=== PATIENT | female | born 1950 | race Caucasian/White ===

== ENCOUNTER → 2016-12-28 | Outpatient (CLI) | payer MEDICARE, OTHER ==
[~2016-12-28] MED LIST: FENTANYL PF 100 MCG/2ML ONE; FLUMAZENIL 0.1 MG/1 ML, 5ML ONE; MIDAZOLAM 1 MG/ML, 5ML ONE; NALOXONE 1 MG/ML, 2ML ONE
== END | disposition home or self-care (01) ==
LOC: RAD 11:35
PROVIDERS: ATTEND Neurological Surgery
DX: M51.26 Other intervertebral disc displacement, lumbar region (principal); M51.16 Intervertebral disc disorders with radiculopathy, lumbar region; M41.86 Other forms of scoliosis, lumbar region; M48.07 Spinal stenosis, lumbosacral region; M43.17 Spondylolisthesis, lumbosacral region; M47.896 Other spondylosis, lumbar region; M25.78 Osteophyte, vertebrae
CPT/HCPCS: 72110; 72148; 99156; 99157; J2250; J3010; J2310

== ENCOUNTER → 2017-04-25 | Outpatient (CLI) | payer MEDICARE, OTHER ==
[~2017-04-25] MED LIST changes: +AMIT50TA PO; +ASPI-496 PO; +CHOL5000 PO; -FENTANYL PF 100 MCG/2ML ONE; +FISH1CAP PO; -FLUMAZENIL 0.1 MG/1 ML, 5ML ONE; +GABA300C10 PO; -MIDAZOLAM 1 MG/ML, 5ML ONE; +MULT-257 PO; -NALOXONE 1 MG/ML, 2ML ONE; +VITA1CAP PO
[2017-04-25 11:52] LABS: HEMATOCRIT 43.5 % (34.6-47.8); HEMOGLOBIN 14.9 g/dL (11.7-16.4); WHITE BLOOD COUNT 7.7 x10^3/uL (3.4-10)
[2017-04-25 12:01] LABS: BLOOD UREA NITROGEN 16 mg/dL (7-18)
== END | disposition home or self-care (01) ==
LOC: STAR 10:48
PROVIDERS: ATTEND Neurological Surgery
DX: Z01.811 Encounter for preprocedural respiratory examination (principal); M54.16 Radiculopathy, lumbar region; I45.10 Unspecified right bundle-branch block; R79.1 Abnormal coagulation profile
CPT/HCPCS: 36415; 71020; 80048; 81003; 85025; 85610; 85730; 93005

== ENCOUNTER 2017-05-09 07:35 | Day surgery (SDC) | payer MEDICARE, OTHER ==
[~2017-05-09] VITALS: Ht 165.1 cm; Wt 79.0 kg
[2017-05-09] MEDS ORDERED: LACTATED RINGERS 1,000 ML IV SCH (07:51)
[2017-05-09 07:52] VITALS: BP 136/90
[2017-05-09] MEDS ORDERED: METOPROLOL 1 MG/ML, 5ML IV PRN (09:30)
[2017-05-09] MEDS ORDERED: ACETAMINOPHEN 325 MG TABLET PO PRN (09:30)
[2017-05-09] MEDS ORDERED: METOCLOPRAMIDE 5 MG/ML, 2ML IV PRN (09:30)
[2017-05-09] MEDS ORDERED: ONDANSETRON 2MG/ML, 2ML IVPush PRN ×2 (09:30→13:00)
[2017-05-09] MEDS ORDERED: EPHEDRINE 50 MG/ML, 1ML IVPush PRN (09:30)
[2017-05-09] MEDS ORDERED: hydrALAzine 20 MG/ML, 1ML IV PRN (09:30)
[2017-05-09] MEDS ORDERED: ALBUTEROL SULFATE 2.5 MG/3 ML NPPB PRN (09:30)
[2017-05-09] MEDS ORDERED: PROMETHAZINE 25 MG/ML, 1ML IV PRN (09:30)
[2017-05-09] MEDS ORDERED: OXYcodone 5 MG/5 ML ORAL.SOL UDC PO PRN (09:30)
[2017-05-09] MEDS ORDERED: LABETALOL 5MG/ML, 20ML IV PRN (09:30)
[2017-05-09] MEDS ORDERED: MEPERIDINE/PF 25MG/0.5ML IVPush PRN (09:30)
[2017-05-09] MEDS ORDERED: KETOROLAC 30 MG/1 ML IV PRN (09:30)
[2017-05-09] MEDS ORDERED: FENTANYL PF 100 MCG/2ML IV PRN (09:30)
[2017-05-09] MEDS ORDERED: MIDAZOLAM 1 MG/ML, 2ML ONE (10:26)
[2017-05-09] MEDS ORDERED: FENTANYL PF 100 MCG/2ML ONE ×2 (10:26)
[2017-05-09] MEDS ORDERED: SUCCINYLCHOLINE 20 MG/ML, 10ML ONE (11:25)
[2017-05-09] MEDS ORDERED: ONDANSETRON 2MG/ML, 2ML ONE (11:25)
[2017-05-09] MEDS ORDERED: ROCURONIUM 10 MG/ML ONE (11:25)
[2017-05-09] MEDS ORDERED: EPINEPHRINE 1 MG/ML, 1ML ONE (11:25)
[2017-05-09] MEDS ORDERED: CEFAZOLIN 1,000 MG ONE (11:25)
[2017-05-09] MEDS ORDERED: DEXAMETHASONE 4 MG/ML, 1ML ONE (11:25)
[2017-05-09] MEDS ORDERED: PROPOFOL 10 MG/ML, 20ML ONE (11:25)
[2017-05-09] MEDS ORDERED: BUPIVACAINE/PF 0.5% INFIL ONE (11:57)
[2017-05-09] MEDS ORDERED: EPINEPHRINE 1 MG/ML, 1ML INFIL ONE (11:59)
[2017-05-09] MEDS ORDERED: BACITRACIN 50,000 UNIT IRRIG ONE (12:01)
[2017-05-09] MEDS ORDERED: HYDROcodone/APAP 10/325 MG TABLET PO PRN (13:00)
[2017-05-09] MEDS ORDERED: HYDROmorphone 2 MG/ML, 1ML IVPush PRN (13:00)
[2017-05-09] MEDS ORDERED: TIZANIDINE 4MG TABLET PO PRN (13:00)
[2017-05-09] MEDS ORDERED: OXYcodone 5 MG/5 ML ORAL.SOL UDC ONE (13:11)
[2017-05-09] MEDS ORDERED: MEPERIDINE/PF 50 MG/ML ONE (13:11)
[2017-05-09] MEDS ORDERED: HYDROmorphone 1 MG/ML, 1ML ONE (13:16)
[2017-05-09] MEDS: HYDROmorphone 1 MG/ML, 1ML IV PRN ×2 (13:43→13:48)
[2017-05-09] MEDS ORDERED: THROMBIN 5,000 UNIT VIAL TP ONE (14:22)
== END 2017-05-09 16:45 | disposition home or self-care (01) ==
LOC: OUT 07:35
PROVIDERS: ATTEND Neurological Surgery
DX: M48.06 Spinal stenosis, lumbar region (principal); M54.16 Radiculopathy, lumbar region; M19.90 Unspecified osteoarthritis, unspecified site; F17.210 Nicotine dependence, cigarettes, uncomplicated; Z98.890 Other specified postprocedural states; Z90.710 Acquired absence of both cervix and uterus; Z88.1 Allergy status to other antibiotic agents; Z88.6 Allergy status to analgesic agent; Z91.048 Other nonmedicinal substance allergy status; Z79.01 Long term (current) use of anticoagulants; Z82.49 Family history of ischemic heart disease and other diseases of the circulatory system; Z83.3 Family history of diabetes mellitus
CPT/HCPCS: 63047; 63048; 72100; J0171; J0330; J0690; J1100; J1170; J2250; J2405; J2704; J3010; J3490; J7120

== ENCOUNTER → 2017-08-30 | Outpatient (CLI) | payer MEDICARE, OTHER ==
[~2017-08-30] MED LIST changes: +FENTANYL PF 100 MCG/2ML ONE; +MIDAZOLAM 1 MG/ML, 5ML ONE
== END ==
LOC: RAD 09:16
PROVIDERS: ATTEND Neurological Surgery
DX: M51.26 Other intervertebral disc displacement, lumbar region (principal); M48.07 Spinal stenosis, lumbosacral region; Z98.890 Other specified postprocedural states
CPT/HCPCS: 72148; J2250; J3010

== ENCOUNTER → 2017-10-06 | Outpatient (CLI) | payer MEDICARE, OTHER ==
[~2017-10-06] MED LIST changes: +MIDAZOLAM 1 MG/ML, 2ML ONE; -MIDAZOLAM 1 MG/ML, 5ML ONE
== END | disposition home or self-care (01) ==
LOC: RAD 08:43
PROVIDERS: ATTEND Registered Nurse Registered Nurse First Assistant
DX: M51.16 Intervertebral disc disorders with radiculopathy, lumbar region (principal)
CPT/HCPCS: 72148; J2250; J3010

== ENCOUNTER → 2017-11-01 | Outpatient (CLI) | payer MEDICARE, OTHER ==
[~2017-11-01] MED LIST changes: -MIDAZOLAM 1 MG/ML, 2ML ONE; +MIDAZOLAM 1 MG/ML, 5ML ONE
== END | disposition home or self-care (01) ==
LOC: RAD 08:56
PROVIDERS: ATTEND Nurse Practitioner Family
DX: M16.11 Unilateral primary osteoarthritis, right hip (principal); M70.61 Trochanteric bursitis, right hip
CPT/HCPCS: 73502; 73721; 99156; 99157; J2250; J3010

== ENCOUNTER → 2018-01-22 | Outpatient (CLI) | payer MEDICARE, OTHER ==
[~2018-01-22] MED LIST changes: +AMIT25TA PO; +DIAZ10TA4 PO; -FENTANYL PF 100 MCG/2ML ONE; +HYDR-879 PO; -MIDAZOLAM 1 MG/ML, 5ML ONE; +ROSU5TAB PO; +UBID100C24 PO; +VITA150T PO
[2018-01-22 11:23] LABS: MICROSCOPIC NOT IND
[2018-01-22 11:23] LABS: BASOPHILS # (AUTO) 0.05 x10^3/uL (0-0.1); BASOPHILS % (AUTO) 1 % (0-1); EOSINOPHILS # (AUTO) 0.22 x10^3/uL (0-0.4); EOSINOPHILS % (AUTO) 2 % (1-7); LYMPHOCYTES # (AUTO) 1.68 x10^3/uL (1-3.4); LYMPHOCYTES % (AUTO) 18 % (22-44); MD NO; MEAN CORPUSCULAR HEMOGLOBIN 34.4 pg (27.0-34.8); MEAN CORPUSCULAR HGB CONC 34.1 g/dL (32.4-35.8); MEAN CORPUSCULAR VOLUME 100.7 fL (80-100); MEAN PLATELET VOLUME 7.6 fL (7.4-10.4); MONOCYTES # (AUTO) 0.66 x10^3/uL (0.2-0.8); MONOCYTES % (AUTO) 7 % (2-9); NEUTROPHILS # (AUTO) 6.76 x10^3/uL (1.8-6.8); NEUTROPHILS % (AUTO) 72 % (42-75); PLATELET COUNT 293 x10^3/uL (130-400); RED BLOOD COUNT 4.23 x10^6/uL (3.82-5.3); RED CELL DISTRIBUTION WIDTH 14.1 % (9.6-15.2)
[2018-01-22 11:29] LABS: CULTURE INDICATED? NO
[2018-01-22 11:30] LABS: INTERNATIONAL NORMALIZED RATIO 0.92 (0.93-1.1); PROTHROMBIN TIME 9.5 Seconds (9.6-11.5)
[2018-01-22 11:33] LABS: ALANINE AMINOTRANSFERASE 47 U/L (12-78); ALBUMIN 3.6 g/dL (3.4-5.0); ANION GAP 6 mmol/L (5-15); CALCIUM 9.1 mg/dL (8.5-10.1); CHLORIDE 106 mmol/L (98-107); CREATININE 0.79 mg/dL (0.55-1.02)
[2018-01-22 11:35] LABS: ALKALINE PHOSPHATASE 102 U/L (45-117); BILIRUBIN,TOTAL 0.4 mg/dL (0.2-1.0); TOTAL PROTEIN 7.3 g/dL (6.4-8.2)
[2018-01-22 12:25] LABS: HEMOGLOBIN A1C 5.7 % (4.2-6.3)
== END | disposition home or self-care (01) ==
LOC: STAR 09:59
PROVIDERS: ATTEND Orthopaedic Surgery
DX: Z01.818 Encounter for other preprocedural examination (principal); M16.11 Unilateral primary osteoarthritis, right hip
CPT/HCPCS: 36415; 80053; 81003; 83036; 85025; 85610; 85730; 87081; 87147; 87806; 93005; G0475

== ENCOUNTER 2018-01-29 07:32 | Inpatient (IN) | payer MEDICARE, OTHER ==
[2018-01-22 11:00] VITALS: BP 132/83
[~2018-01-29] VITALS: Ht 165.1 cm; Wt 81.8 kg
[~2018-01-29 07:32] MED LIST changes: +EPINEPHRINE 1 MG/ML, 1ML ONE; +KETOROLAC 60 MG/2 ML ONE; +ROPIvacaine/PF 0.2%, 20 ML ONE; +SODIUM CHLORIDE 0.9% 100 ML ONE; +TRANEXAMIC ACID 100 MG/ML, 10ML ONE
[2018-01-29] MEDS ORDERED: LACTATED RINGERS 1,000 ML IV SCH (07:44)
[2018-01-29] MEDS ORDERED: ACETAMINOPHEN 500 MG TABLET PO ONE ×2 (08:00→10:00)
[2018-01-29] MEDS ORDERED: GABAPENTIN 300 MG CAPSULE PO ONE ×2 (08:00→10:00)
[2018-01-29] MEDS ORDERED: FENTANYL PF 250 MCG/5ML ONE (08:02)
[2018-01-29] MEDS ORDERED: MIDAZOLAM 1 MG/ML, 2ML ONE (08:02)
[2018-01-29] MEDS ORDERED: PROPOFOL 10 MG/ML, 20ML ONE (08:03)
[2018-01-29] MEDS ORDERED: LIDOCAINE-MPF 2% ,5ML ONE (08:03)
[2018-01-29] MEDS ORDERED: MUPI1OIN6 NAS (08:03)
[2018-01-29] MEDS ORDERED: ROCURONIUM 10MG/ML,5ML ONE (08:04)
[2018-01-29] MEDS ORDERED: CEFAZOLIN 1,000 MG ONE ×2 (08:04→08:05)
[2018-01-29] MEDS ORDERED: WATER-INJECTION,STERILE 10 ML IV ONE (08:05)
[2018-01-29] MEDS ORDERED: DEXAMETHASONE 4 MG/ML, 1ML ONE ×2 (08:06)
[2018-01-29] MEDS ORDERED: BUPIVACAINE/PF 0.25% ONE (08:07)
[2018-01-29] MEDS ORDERED: EPINEPHRINE 1 MG/ML, 1ML ONE (08:08)
[2018-01-29] MEDS ORDERED: OxyconTIN ER 20 MG TAB.ER ONE (09:20)
[2018-01-29] MEDS ORDERED: ONDANSETRON ODT 8 MG ONE (09:20)
[2018-01-29] MEDS ORDERED: ONDANSETRON 4 MG TABLET PO PRN (09:30)
[2018-01-29] MEDS ORDERED: ONDANSETRON 2MG/ML, 2ML IV PRN (09:30)
[2018-01-29] MEDS ORDERED: DIAZEPAM 5 MG TABLET PO PRN (09:30)
[2018-01-29] MEDS ORDERED: ALUMINUM/MAG/SIMETHICONE 30 ML UDC PO PRN (09:30)
[2018-01-29] MEDS ORDERED: ACETAMINOPHEN 650 MG/20.3 ML UDC PO PRN (09:30)
[2018-01-29] MEDS ORDERED: DIPHENHYDRAMINE 25 MG CAPSULE PO PRN (09:30)
[2018-01-29] MEDS ORDERED: MAGNESIUM HYDROXIDE 8%, 30ML UDC PO PRN (09:30)
[2018-01-29] MEDS ORDERED: HYDROmorphone 1 MG/ML, 1ML IV PRN (09:30)
[2018-01-29] MEDS ORDERED: SENNA/DOCUSATE TABLET PO PRN (09:30)
[2018-01-29] MEDS ORDERED: HALOPERIDOL 5 MG/ML IV PRN (10:00)
[2018-01-29] MEDS ORDERED: LORazepam 2 MG/ML, 1ML IVPush PRN (10:00)
[2018-01-29] MEDS ORDERED: MEPERIDINE/PF 25MG/0.5ML IVPush PRN (10:00)
[2018-01-29] MEDS ORDERED: PROMETHAZINE 25 MG/ML, 1ML IV PRN (10:00)
[2018-01-29] MEDS ORDERED: FENTANYL PF 100 MCG/2ML IV PRN (10:00)
[2018-01-29] MEDS ORDERED: OXYcodone 5 MG/5 ML ORAL.SOL UDC PO PRN (10:00)
[2018-01-29] MEDS ORDERED: hydrALAzine 20 MG/ML, 1ML IV PRN (10:00)
[2018-01-29] MEDS ORDERED: LABETALOL 5MG/ML, 20ML IV PRN (10:00)
[2018-01-29] MEDS ORDERED: FENTANYL PF 100 MCG/2ML ONE (10:08)
[2018-01-29] MEDS ORDERED: HYDROmorphone 2 MG/ML, 1ML ONE (11:03)
[2018-01-29] MEDS: HYDROmorphone 1 MG/ML, 1ML IV PRN ×4 (11:05→11:35)
[2018-01-29] MEDS ORDERED: TRANEXAMIC ACID 1,000 MG in SODIUM CHLORIDE 0.9% 100 ML IVPB ONE (11:30)
[2018-01-29] MEDS: D5%-0.45NACL+KCL 20MEQ 1,000 ML IV SCH ×2 (13:10→22:43)
[2018-01-29 13:20] VITALS: BP 116/82
[2018-01-29] MEDS: GABAPENTIN 300 MG CAPSULE PO SCH ×2 (16:05→22:44)
[2018-01-29] MEDS: OXYcodone IR 5MG TABLET PO PRN ×2 (16:05→22:52)
[2018-01-29] MEDS: CEFAZOLIN PMX 1GM/50ML 50 ML IVPB SCH (16:05)
[2018-01-29] MEDS: ASPIRIN 81 MG TABLET EC PO SCH (16:05)
[2018-01-29 18:35] VITALS: BP 97/66
[2018-01-29] MEDS ORDERED: DIAZEPAM 10 MG TABLET PO SCH (21:00)
[2018-01-29] MEDS ORDERED: AMITRIPTYLINE 50 MG TABLET PO SCH (21:00)
[2018-01-29] MEDS ORDERED: ATORVASTATIN 10 MG TABLET PO SCH (21:00)
[2018-01-29] MEDS: DOCUSATE 100 MG CAPSULE PO SCH (22:44)
[2018-01-30] MEDS: CEFAZOLIN PMX 1GM/50ML 50 ML IVPB SCH (00:14)
[2018-01-30 00:30] VITALS: BP 100/67
[2018-01-30 04:26] VITALS: BP 109/72
[2018-01-30] MEDS ORDERED: DEXAMETHASONE 4 MG/ML, 1ML IVPush SCH (06:00)
[2018-01-30] MEDS: ASPIRIN 81 MG TABLET EC PO SCH (06:11)
[2018-01-30] MEDS: D5%-0.45NACL+KCL 20MEQ 1,000 ML IV SCH (07:00)
[2018-01-30] MEDS: GABAPENTIN 300 MG CAPSULE PO SCH (08:41)
[2018-01-30] MEDS: OXYcodone IR 5MG TABLET PO PRN ×2 (08:42→13:28)
[2018-01-30] MEDS: DOCUSATE 100 MG CAPSULE PO SCH (08:42)
[2018-01-30] MEDS ORDERED: TAMSULOSIN 0.4 MG CAP.ER.24H PO SCH (09:00)
[2018-01-30 10:24] VITALS: BP 99/66
[2018-01-30] MEDS ORDERED: KETOROLAC 30 MG/1 ML IV SCH (11:00)
[2018-01-30 11:26] VITALS: BP 99/66
[2018-01-30 12:59] VITALS: BP 95/63
[2018-01-30] MEDS ORDERED: CELE200C PO (13:48)
[2018-01-30] MEDS ORDERED: ASPI-515 PO (13:48)
[2018-01-30] MEDS ORDERED: DOCU-131 PO (13:48)
[2018-01-30] MEDS ORDERED: OXYC5TAB3 PO (13:48)
[2018-01-30] MEDS ORDERED: ONDA4TAB10 PO (13:48)
[2018-01-30] MEDS ORDERED: DIAZ5TAB4 PO (13:48)
== END 2018-01-30 14:25 | disposition home or self-care (01) | DRG 470 ==
LOC: ORIP 07:32 → 4NOR 12:25 → DCLOUNGE 01-30 13:58
PROVIDERS: ADMIT Orthopaedic Surgery; ATTEND Orthopaedic Surgery
PROC: 0SR906Z Replacement of Right Hip Joint with Oxidized Zirconium on Polyethylene Synthetic Substitute, Open Approach (ICD-10-PCS; principal; 2018-01-29 09:30)
DX: M16.11 Unilateral primary osteoarthritis, right hip (principal); Z88.5 Allergy status to narcotic agent; Z90.710 Acquired absence of both cervix and uterus; Z91.040 Latex allergy status
CPT/HCPCS: 36415; 85014; 85018; 86850; 86900; C1713; J0171; J0690; J1100; J1170; J1885; J2250; J2704; J2795; J3010; J3490; Q0162; C1776; J3480; J7120

== ENCOUNTER 2018-04-21 22:09 | Emergency (ER) | payer MEDICARE, OTHER ==
[~2018-04-21] VITALS: Ht 167.6 cm; Wt 87.0 kg
[~2018-04-21 22:09] MED LIST changes: +ASPI-515 PO; +CELE200C PO; +DIAZ5TAB4 PO; +DOCU-131 PO; -EPINEPHRINE 1 MG/ML, 1ML ONE; -KETOROLAC 60 MG/2 ML ONE; +MUPI1OIN6 NAS; +ONDA4TAB10 PO; +OXYC5TAB3 PO; -ROPIvacaine/PF 0.2%, 20 ML ONE; -SODIUM CHLORIDE 0.9% 100 ML ONE; -TRANEXAMIC ACID 100 MG/ML, 10ML ONE
[2018-04-21 22:11] VITALS: BP 137/92
[2018-04-21] MEDS ORDERED: MORPHINE SULFATE 4 MG/ML, 1ML ONE (22:21)
[2018-04-21] MEDS ORDERED: HYDROmorphone 2 MG/ML, 1ML ONE (22:26)
[2018-04-21] MEDS ORDERED: MORPHINE SULFATE 4 MG/ML, 1ML IVPush PRN (22:30)
[2018-04-21] MEDS ORDERED: HYDROmorphone 1 MG/ML, 1ML IV ONE (22:30)
[2018-04-21] MEDS ORDERED: SODIUM CHLORIDE FLUSH 10ML SYR IVF ONE (22:30)
[2018-04-21] MEDS ORDERED: PROPOFOL 10 MG/ML, 20ML ONE (22:41)
[2018-04-21] MEDS ORDERED: PROPOFOL 10 MG/ML, 20ML IVPush ONE (23:00)
== END 2018-04-21 23:58 | disposition home or self-care (01) ==
LOC: ED 23:05
DX: M24.351 Pathological dislocation of right hip, not elsewhere classified (principal); Z87.891 Personal history of nicotine dependence
CPT/HCPCS: 27250; 73502; 96374; 99285; J1170; J2704

== ENCOUNTER 2018-05-16 01:07 | Emergency (ER) | payer MEDICARE, OTHER ==
[~2018-05-16] VITALS: Ht 165.1 cm; Wt 75.5 kg
[2018-05-16] MEDS ORDERED: PROPOFOL 10 MG/ML, 20ML IVPush ONE (01:30)
[2018-05-16] MEDS ORDERED: HYDROmorphone 2 MG/ML, 1ML IVPush PRN (01:30)
[2018-05-16] MEDS ORDERED: HYDROmorphone 2 MG/ML, 1ML ONE (01:52)
[2018-05-16 02:08] VITALS: BP 130/75
[2018-05-16] MEDS ORDERED: PROPOFOL 10 MG/ML, 20ML ONE ×2 (02:14→02:15)
== END 2018-05-16 06:52 | disposition home or self-care (01) ==
LOC: ED 02:06
DX: M24.351 Pathological dislocation of right hip, not elsewhere classified (principal); Z96.641 Presence of right artificial hip joint
CPT/HCPCS: 27265; 73502; 96374; 99152; 99285; J1170

== ENCOUNTER → 2018-05-28 | Outpatient (CLI) | payer MEDICARE, OTHER ==
[~2018-05-28] MED LIST changes: +CHOL3000 PO; +HYDR-3237 PO; +HYDR-3622 PO; -HYDR-879 PO; +OMEG-14 PO
[2018-05-28 10:18] LABS: MICROSCOPIC NOT IND
[2018-05-28 10:22] LABS: CULTURE INDICATED? NO
[2018-05-28 10:27] LABS: BASOPHILS # (AUTO) 0.03 x10^3/uL (0-0.1); BASOPHILS % (AUTO) 1 % (0-1); EOSINOPHILS # (AUTO) 0.25 x10^3/uL (0-0.4); EOSINOPHILS % (AUTO) 3 % (1-7); LYMPHOCYTES # (AUTO) 1.51 x10^3/uL (1-3.4); LYMPHOCYTES % (AUTO) 20 % (22-44); MD NO; MEAN CORPUSCULAR HEMOGLOBIN 31.8 pg (27.0-34.8); MEAN CORPUSCULAR VOLUME 93.6 fL (80-100); MEAN PLATELET VOLUME 7.7 fL (7.4-10.4); MONOCYTES # (AUTO) 0.53 x10^3/uL (0.2-0.8); MONOCYTES % (AUTO) 7 % (2-9); NEUTROPHILS # (AUTO) 5.11 x10^3/uL (1.8-6.8); NEUTROPHILS % (AUTO) 69 % (42-75); PLATELET COUNT 301 x10^3/uL (130-400); RED BLOOD COUNT 4.63 x10^6/uL (3.82-5.3); RED CELL DISTRIBUTION WIDTH 16.1 % (9.6-15.2)
[2018-05-28 10:37] LABS: INTERNATIONAL NORMALIZED RATIO 0.94 (0.93-1.1); PROTHROMBIN TIME 9.7 Seconds (9.6-11.5)
[2018-05-28 10:39] LABS: ALANINE AMINOTRANSFERASE 49 U/L (12-78); ANION GAP 7 mmol/L (5-15); CALCIUM 9.6 mg/dL (8.5-10.1); CHLORIDE 110 mmol/L (98-107); CREATININE 0.77 mg/dL (0.55-1.02)
[2018-05-28 10:41] LABS: ALKALINE PHOSPHATASE 102 U/L (45-117); BILIRUBIN,TOTAL 0.4 mg/dL (0.2-1.0)
[2018-05-28 10:55] LABS: HEMOGLOBIN A1C 5.7 % (4.2-6.3)
== END | disposition home or self-care (01) ==
LOC: STAR 09:17
PROVIDERS: ATTEND Orthopaedic Surgery
DX: Z01.818 Encounter for other preprocedural examination (principal); M24.451 Recurrent dislocation, right hip; Z96.641 Presence of right artificial hip joint
CPT/HCPCS: 36415; 80053; 81003; 83036; 85025; 85610; 85730; 87081; 87806; 93005; G0475

== ENCOUNTER 2018-06-04 07:38 | Inpatient (IN) | payer MEDICARE, OTHER ==
[~2018-06-04] VITALS: Ht 165.1 cm; Wt 77.8 kg
[~2018-06-04 07:38] MED LIST changes: +EPINEPHRINE 1 MG/ML, 1ML ONE; +KETOROLAC 60 MG/2 ML ONE; +ROPIvacaine/PF 0.2%, 20 ML ONE; +TRANEXAMIC ACID 100 MG/ML, 10ML ONE
[2018-06-04] MEDS ORDERED: MIDAZOLAM 1 MG/ML, 2ML ONE (08:00)
[2018-06-04] MEDS ORDERED: FENTANYL PF 250 MCG/5ML ONE (08:00)
[2018-06-04] MEDS ORDERED: DEXAMETHASONE 4 MG/ML, 1ML ONE (08:03)
[2018-06-04] MEDS ORDERED: GLYCOPYRROLATE 0.2MG/1ML, 5ML ONE (08:03)
[2018-06-04] MEDS ORDERED: PROPOFOL 10 MG/ML, 20ML ONE (08:03)
[2018-06-04] MEDS ORDERED: ROCURONIUM 10MG/ML,5ML ONE (08:03)
[2018-06-04] MEDS ORDERED: NEOSTIGMINE 1 MG/ML, 10ML ONE (08:03)
[2018-06-04] MEDS ORDERED: SUCCINYLCHOLINE 20 MG/ML, 10ML ONE (08:03)
[2018-06-04] MEDS ORDERED: ONDANSETRON 2MG/ML, 2ML ONE (08:03)
[2018-06-04] MEDS ORDERED: CEFAZOLIN 1,000 MG ONE (08:03)
[2018-06-04] MEDS ORDERED: LACTATED RINGERS 1,000 ML IV SCH (08:14)
[2018-06-04] MEDS ORDERED: VANCOMYCIN PER PHARMACY MC STA (08:18)
[2018-06-04] MEDS ORDERED: GABAPENTIN 300 MG CAPSULE PO ONE (08:30)
[2018-06-04] MEDS ORDERED: LIDOCAINE-MPF 1%, 2ML INFIL ONE (08:30)
[2018-06-04] MEDS ORDERED: ACETAMINOPHEN 500 MG TABLET PO ONE (08:30)
[2018-06-04] MEDS ORDERED: VANCOMYCIN 1,500 MG in SODIUM CHLORIDE 0.9% 250 ML IV ONE (08:30)
[2018-06-04] MEDS ORDERED: SENNA/DOCUSATE TABLET PO PRN (09:30)
[2018-06-04] MEDS ORDERED: PROMETHAZINE 12.5 MG SUPP PR PRN (09:30)
[2018-06-04] MEDS ORDERED: ONDANSETRON 2MG/ML, 2ML IV PRN ×2 (09:30→10:00)
[2018-06-04] MEDS ORDERED: MAGNESIUM HYDROXIDE 8%, 30ML UDC PO PRN (09:30)
[2018-06-04] MEDS ORDERED: ACETAMINOPHEN 325 MG TABLET PO PRN ×2 (09:30→12:35)
[2018-06-04] MEDS ORDERED: HYDROmorphone 1 MG/ML, 1ML IV PRN ×2 (09:30→10:00)
[2018-06-04] MEDS ORDERED: DIPHENHYDRAMINE 25 MG CAPSULE PO PRN (09:30)
[2018-06-04] MEDS ORDERED: PROMETHAZINE 25 MG/ML, 1ML IM PRN (09:30)
[2018-06-04] MEDS ORDERED: ALUMINUM/MAG/SIMETHICONE 30 ML UDC PO PRN (09:30)
[2018-06-04] MEDS ORDERED: ONDANSETRON 4 MG TABLET PO PRN (09:30)
[2018-06-04] MEDS ORDERED: ONDANSETRON ODT 8 MG PO PRN (10:00)
[2018-06-04] MEDS ORDERED: PROMETHAZINE 25 MG/ML, 1ML IV PRN (10:00)
[2018-06-04] MEDS ORDERED: OXYcodone 5 MG/5 ML ORAL.SOL UDC PO PRN (10:00)
[2018-06-04] MEDS ORDERED: DIAZEPAM 5 MG/ML, 2ML IVPush PRN (10:00)
[2018-06-04] MEDS ORDERED: TRANEXAMIC ACID 1,000 MG in SODIUM CHLORIDE 0.9% 100 ML IVPB ONE (11:00)
[2018-06-04] MEDS ORDERED: OXYcodone 5 MG/5 ML ORAL.SOL UDC ONE (11:15)
[2018-06-04] MEDS ORDERED: FENTANYL PF 100 MCG/2ML ONE (11:15)
[2018-06-04] MEDS: FENTANYL PF 100 MCG/2ML IV PRN ×2 (11:24→11:41)
[2018-06-04 12:15] VITALS: BP 129/83
[2018-06-04] MEDS ORDERED: HYDROmorphone 2 MG/ML, 1ML ONE (12:35)
[2018-06-04] MEDS ORDERED: HYDROcodone/APAP 5/325 TABLET PO PRN (13:00)
[2018-06-04] MEDS ORDERED: ASPI-621 PO (13:53)
[2018-06-04] MEDS: D5%-0.45NACL+KCL 20MEQ 1,000 ML IV SCH (15:55)
[2018-06-04] MEDS: OXYcodone IR 5MG TABLET PO PRN ×2 (15:55→21:04)
[2018-06-04] MEDS: CEFAZOLIN PMX 1GM/50ML 50 ML IVPB SCH (15:56)
[2018-06-04] MEDS: ASPIRIN 81 MG TABLET EC PO SCH (17:21)
[2018-06-04 19:52] VITALS: BP 113/72
[2018-06-04] MEDS ORDERED: VANCOMYCIN PMX 1GM/200ML 200 ML IVPB SCH (21:00)
[2018-06-04] MEDS ORDERED: AMITRIPTYLINE 50 MG TABLET PO SCH (21:00)
[2018-06-04] MEDS ORDERED: ATORVASTATIN 10 MG TABLET PO SCH (21:00)
[2018-06-04] MEDS: DOCUSATE 100 MG CAPSULE PO SCH (21:03)
[2018-06-05 00:20] VITALS: BP 107/67
[2018-06-05] MEDS: CEFAZOLIN PMX 1GM/50ML 50 ML IVPB SCH (00:27)
[2018-06-05] MEDS: OXYcodone IR 5MG TABLET PO PRN ×4 (00:35→12:51)
[2018-06-05] MEDS: D5%-0.45NACL+KCL 20MEQ 1,000 ML IV SCH ×2 (02:30→11:30)
[2018-06-05 04:39] VITALS: BP 111/73
[2018-06-05] MEDS: ASPIRIN 81 MG TABLET EC PO SCH (05:49)
[2018-06-05] MEDS ORDERED: DEXAMETHASONE 4 MG/ML, 1ML IVPush SCH (06:00)
[2018-06-05 08:35] VITALS: BP 126/77
[2018-06-05] MEDS ORDERED: TAMSULOSIN 0.4 MG CAP.ER.24H PO SCH (09:00)
[2018-06-05] MEDS: DOCUSATE 100 MG CAPSULE PO SCH (09:05)
[2018-06-05] MEDS ORDERED: ONDA4TAB10 PO (09:15)
[2018-06-05] MEDS ORDERED: DOCU-131 PO (09:15)
[2018-06-05] MEDS ORDERED: CELE200C PO (09:16)
[2018-06-05] MEDS ORDERED: OXYC5TAB3 PO (09:17)
[2018-06-05] MEDS ORDERED: KETOROLAC 30 MG/1 ML IV SCH (09:30)
[2018-06-05 12:27] VITALS: BP 153/91
== END 2018-06-05 13:20 | disposition home or self-care (01) | DRG 468 ==
LOC: ORIP 07:38 → 4NOR 12:06 → DCLOUNGE 06-05 13:04
PROVIDERS: ADMIT Orthopaedic Surgery; ATTEND Orthopaedic Surgery
PROC: 0SUA09Z Supplement Right Hip Joint, Acetabular Surface with Liner, Open Approach (ICD-10-PCS; 2018-06-04)
PROC: 0SP909Z Removal of Liner from Right Hip Joint, Open Approach (ICD-10-PCS; principal; 2018-06-04 09:15)
DX: T84.020A Dislocation of internal right hip prosthesis, initial encounter (principal); Y79.2 Prosthetic and other implants, materials and accessory orthopedic devices associated with adverse incidents; Z88.5 Allergy status to narcotic agent; Z88.8 Allergy status to other drugs, medicaments and biological substances; Y92.89 Other specified places as the place of occurrence of the external cause; S73.191A Other sprain of right hip, initial encounter
CPT/HCPCS: 36415; 72170; 85014; 85018; 86850; 86900; 87070; 87075; 87205; 89051; G0378; J0171; J0690; J1100; J1170; J1885; J2250; J2405; J2704; J2710; J2795; J3010; J3370; J3490; C1776; J0330; J3480; J7050; J7120